=== PATIENT | female | born 1990 | race Caucasian/White ===

== ENCOUNTER → 2025-02-01 13:42 | Outpatient (REF) | payer OTHER, SELFPAY | LOC: WDC 13:42 | PROVIDERS: ATTENDING PHYSICIAN Obstetrics & Gynecology; FAMILY PHYSICIAN Family Medicine | DX: N63.20 Unspecified lump in the left breast, unspecified quadrant (principal); N63.23 Unspecified lump in the left breast, lower outer quadrant | CPT/HCPCS: 76642 ==

== ENCOUNTER → 2025-03-10 09:57 | Outpatient (REF) | payer OTHER, SELFPAY | LOC: RAD 09:57 | PROVIDERS: ATTENDING PHYSICIAN Obstetrics & Gynecology; FAMILY PHYSICIAN Family Medicine | DX: N93.9 Abnormal uterine and vaginal bleeding, unspecified (principal); O26.859 Spotting complicating pregnancy, unspecified trimester | CPT/HCPCS: 76801; 76817 ==

== ENCOUNTER 2025-09-05 05:24 | Inpatient (IN) | payer OTHER, SELFPAY ==
[2025-09-05 05:41] VITALS: BP 109/60; BMI 33.3
[2025-09-05] MEDS: LR 1000 IV ×2 (05:51→06:56)
[2025-09-05 06:05] LABS: Hematocrit 33.1 % (37.0-47.0); Hemoglobin 11.6 g/dL (12.0-16.0); Mean Corp Hgb Conc. 35.0 g/dL (33.0-37.0); Mean Corpuscular Volume 92.2 fL (81.0-99.0); Platelet Count 268 10^3/uL (130-400); Red Cell Dist. Width 11.9 % (11.5-14.5)
[2025-09-05] MEDS: ANCEF 10 IV (07:20)
[2025-09-05] MEDS: TYLENOL 975 MG PO (07:20)
[2025-09-05] MEDS: BICITRA 30 ML PO (07:21)
[2025-09-05] MEDS: PITOCIN 30 UNITS/NSS 500 ML IV (13:24)
[2025-09-05] MEDS: TORADOL 15 MG IV ×2 (14:05→20:03)
[2025-09-05] MEDS: COLACE 100 MG PO (20:03)
[2025-09-05] MEDS: PRENATAL PLUS 1 TABLET PO (23:21)
[2025-09-05] MEDS: MYLICON 80 MG PO (23:31)
[2025-09-06] MEDS: TORADOL 15 MG IV ×2 (02:01→07:56)
[2025-09-06 05:33] LABS: Hematocrit 28.5 % (37.0-47.0); Hemoglobin 9.6 g/dL (12.0-16.0); Mean Corp Hgb Conc. 33.7 g/dL (33.0-37.0); Mean Corpuscular Volume 95.0 fL (81.0-99.0); Platelet Count 212 10^3/uL (130-400); Red Cell Dist. Width 12.1 % (11.5-14.5)
--- NOTE | 2025-09-06 07:38 | W.PN.ANS.POP ---
Anesthesia Post Operative
- Anesthesia Post Op Note
Vital Signs Stable-See Nursing Note: Yes
Airway Patent: Yes
Adequate Pain Control: Yes
Change in Mental Status: No
Current Postoperative Nausea & Vomiting: No
Anesthesia Complications: No
General Anesthetic Recall: No
Unplanned Admission: No
Post Op Hydration Adequate: Yes
[2025-09-06] MEDS: COLACE 100 MG PO ×2 (09:36→19:38)
[2025-09-06 14:04] LABS: Syphilis/T. pallidum Ab Reflex Negative (Negative)
[2025-09-06] MEDS: MOTRIN 600 MG PO ×2 (15:55→22:15)
[2025-09-06] MEDS: MYLICON 80 MG PO (15:55)
[2025-09-06] MEDS: PRENATAL PLUS 1 TABLET PO (22:15)
[2025-09-07] MEDS: MOTRIN 600 MG PO (04:19)
[2025-09-07] MEDS: FEOSOL 325 MG PO (08:56)
[2025-09-07] MEDS: COLACE 100 MG PO (08:56)
[2025-09-07] MEDS: TYLENOL 650 MG PO (08:59)
--- NOTE | 2025-09-07 22:13 | W.DS.TRANS ---
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
-
Discharge Instructions:
Discharge Diagnosis/Procedures 39 wks; Repeat LTCS; anemia-iron def
Diet Regular
Activity No strenuous activity
Driving Restrictions No driving for 2 weeks
Bathing Restrictions OK to Shower
Instructions:
Stand-Alone Forms: LDRP Delivery
Changes to Home Medications: No
Discharge Medications:
DC Medications w/original date entered in [facility]
1 tab PO QHS 09/05/25
acetaminophen 325 mg tablet 650 mg (2 x 325 mg) PO Q4HPRN PRN mild pain #0 tabs 09/07/25
ferrous sulfate 325 mg (65 mg iron) tablet 325 mg PO DAILY #30 tabs 09/07/25
ibuprofen 600 mg tablet 600 mg PO Q6HPRN PRN cramps #0 tabs 09/07/25
Home Medication Changes
Pending Results: No
Total time spent discharging patient (in min): 30
== END 2025-09-07 14:47 | disposition home or self-care (01) | DRG 788 ==
LOC: LDRP 05:24
PROVIDERS: ADMITTING PHYSICIAN Obstetrics & Gynecology; REFERRING PHYSICIAN Obstetrics & Gynecology
PROC: 10D00Z1 Extraction of Products of Conception, Low, Open Approach (ICD-10-PCS; 2025-09-05)
DX: O34.211 Maternal care for low transverse scar from previous cesarean delivery (principal); Z3A.39 39 weeks gestation of pregnancy; Z37.0 Single live birth; O69.81X0 Labor and delivery complicated by cord around neck, without compression, not applicable or unspecified
CPT/HCPCS: 36415; 85027; 86780; 86850; 86900; 86901